=== PATIENT | male | born 1975 | race Caucasian/White ===

== ENCOUNTER 2020-12-20 13:31 | Outpatient (CLI) | payer OTHER, SELFPAY ==
--- NOTE | 2020-12-20 13:49 | MR_ITS ---
WS: [id number] MRI LUMBAR SPINE NONCONTRAST TECHNIQUE: Sagittal T1, T2 and STIR imaging. Axial T1 and T2 imaging. CLINICAL INFORMATION: LBP COMPARISON: None. FINDINGS: Mild lumbar curve. No acute compression. Small central disc protrusion in the cervical spine on the s cout imaging at C6-7 with indentation on the thoracic cord and small syrinx. Additional syrinx partia lly visualized in the lower thoracic cord. This can be further evaluated with cervical and thoracic s pine MRI. L1-L2: Normal. L2-L3: Minimal annular bulging. Mild facet arthropathy. Spinal canal and foramen are patent. L3-L4: No significant disc bulging. Mild facet arthropathy. Spinal canal and foramen are patent. L4-L5: Mild annular bulging. Slight impingement on the right subarticular recess and traversing right L5 nerve root. Small right foraminal protrusion with mild to moderate right foraminal narrowing. Lef t foramen is patent. Moderate facet arthropathy. L5-S1: No significant disc bulging. Spinal canal and foramen are patent. Mild facet arthropathy. Left renal cysts. Visualized pelvic bony structures: Normal. Paravertebral soft tissues: Normal. MR/MR lumbar spine wo con* [id number] IMPRESSION: 1. Mild lumbar curve. No acute compression. No high-grade central canal stenos is. 2. Small syrinx in the cervical cord at C6-7 with central disc protrusion and slight indentation on cervical cord. Additional syrinx partially visualized in the lower thoracic cord. This could be further evaluated with cervical and thor acic MRI. 3. Mild annular bulging L4-5 with slight effacement of ventral thecal sac and slight impingement on the traversing right L5 nerve root. 4. Small right foraminal protrusion L4-5 with a small annular tear slightly im pinges the exiting right L4 nerve root. Recommend correlation for Right L4 nerv e root symptoms. 5. Moderate facet arthropathy L3-L5.
== END 2020-12-20 13:32 | disposition home or self-care (01) ==
PROVIDERS: Visit Provider Nurse Practitioner
DX: M51.26 Other intervertebral disc displacement, lumbar region (principal); M54.50 Low back pain, unspecified
CPT/HCPCS: 72148